=== PATIENT | male | born 2000 | race Asian ===

== ENCOUNTER 2024-02-02 07:58 | Emergency (ER) | payer OTHER ==
[~2024-02-02] VITALS: Ht 188 cm; Wt 108.5 kg
[2024-02-02] MEDS: PANTOPRAZOLE 40MG VIAL IV ONE (09:14)
[2024-02-02] MEDS: ONDANSETRON 4MG 2ML VIAL IV ONE (09:14)
[2024-02-02 09:41] LABS: HEMATOCRIT 46.6 % (42.0-52.0); HEMOGLOBIN 15.7 g/dl (13.5-17.5); MEAN CORPUSCULAR HEMOGLOBIN 26.8 pg (27.0-33.0); MEAN CORPUSCULAR HGB CONC 33.7 g/dl (32.0-36.5); MEAN CORPUSCULAR VOLUME 79.5 fl (80.0-96.0); PLATELET COUNT, AUTOMATED 215 10^3/uL (150-450); RED BLOOD COUNT 5.86 10^6/uL (4.30-6.10); WHITE BLOOD COUNT 7.6 10^3/uL (4.0-10.0)
[2024-02-02 09:54] LABS: INR 1.07; PARTIAL THROMBOPLASTIN TIME 22.9 SECONDS (24.8-34.2); PROTHROMBIN TIME 13.6 SECONDS (12.5-14.5)
[2024-02-02 10:01] LABS: LIPASE 69 U/L (12-53)
[2024-02-02 10:03] LABS: ALBUMIN 4.4 G/DL (3.2-5.2); ALKALINE PHOSPHATASE 52 U/L (46-116); ALT/SGPT 39 U/L (7.0-40); AST/SGOT 55 U/L (<34); BILIRUBIN,DIRECT 0.3 MG/DL (<0.4); BILIRUBIN,TOTAL 1.2 MG/DL (0.3-1.2); BLOOD UREA NITROGEN 18 MG/DL (9-23); CALCIUM LEVEL 9.9 MG/DL (8.5-10.1); CARBON DIOXIDE LEVEL 27 MMOL/L (20-31); CHLORIDE LEVEL 105 MMOL/L (98-107); CREATININE FOR GFR 0.99 MG/DL (0.70-1.30); GLOMERULAR FILTRATION RATE > 60.0 (>60); GLUCOSE, FASTING 83 MG/DL (60-100); POTASSIUM SERUM 4.6 MMOL/L (3.5-5.1); SODIUM LEVEL 137 MMOL/L (136-145)
[2024-02-02 10:59] VITALS: BP 136/74; TEMP 97; O2SAT 99
[2024-02-02] MEDS ORDERED: PANT40TA29 PO (10:59)
[2024-02-02] MEDS ORDERED: SUCR1SS PO (10:59)
== END 2024-02-02 11:18 | disposition home or self-care (01) ==
LOC: M ED 07:58
DX: K29.21 Alcoholic gastritis with bleeding (principal); F17.210 Nicotine dependence, cigarettes, uncomplicated; F10.10 Alcohol abuse, uncomplicated
CPT/HCPCS: 80048; 80076; 83690; 85027; 85610; 85730; 86850; 86900; 86901; 96374; 99284; J2405; J2470

== ENCOUNTER 2024-03-04 05:50 | Emergency (ER) | payer OTHER ==
[~2024-03-04] VITALS: Ht 188 cm; Wt 107.9 kg
[~2024-03-04 05:50] MED LIST: PANT40TA29 PO; SUCR1SS PO
[2024-03-04 07:03] LABS: VENOUS BASE EXCESS 2.2 (-2.0-2.0); VENOUS HCO3 30.1 MMOL/L (23.0-27.0); VENOUS O2 SATURATION 57.3 % (60.0-80.0); VENOUS PARTIAL PRESSURE CO2 60.4 mmHg (38.0-50.0); VENOUS PARTIAL PRESSURE O2 31.2 mmHg (30.0-50.0); VENOUS PH 7.316 UNITS (7.330-7.430); VENOUS STANDARD HCO3 25.4 MMOL/L
[2024-03-04 07:13] LABS: BASO % 0.5 % (0.0-1.0); EOS # 0.3 10^3/uL (0.0-0.5); EOS % 5.2 % (0.0-3.0); HEMATOCRIT 43.5 % (42.0-52.0); HEMOGLOBIN 14.3 g/dl (13.5-17.5); LYMPH # 1.8 10^3/uL (1.5-5.0); LYMPH % 30.5 % (24.0-44.0); MEAN CORPUSCULAR HEMOGLOBIN 27.4 pg (27.0-33.0); MEAN CORPUSCULAR HGB CONC 32.9 g/dl (32.0-36.5); MEAN CORPUSCULAR VOLUME 83.5 fl (80.0-96.0); MONO # 0.5 10^3/uL (0.0-0.8); MONO % 8.6 % (2.0-8.0); NEUTROPHILS # 3.3 10^3/uL (1.5-8.5); NEUTROPHILS % 54.9 % (36.0-66.0); PLATELET COUNT, AUTOMATED 226 10^3/uL (150-450); RED BLOOD COUNT 5.21 10^6/uL (4.30-6.10)
[2024-03-04 07:33] LABS: INR 0.96; PARTIAL THROMBOPLASTIN TIME 24.5 SECONDS (24.8-34.2)
[2024-03-04 07:40] LABS: ETHYL ALCOHOL (ETHANOL) < 0.003 % (0.000-0.010); LIPASE 77 U/L (12-53)
[2024-03-04 07:42] LABS: ALBUMIN 3.8 G/DL (3.2-5.2); ALKALINE PHOSPHATASE 60 U/L (40-129); ALT/SGPT 22 U/L (7.0-40); AST/SGOT 17 U/L (<34); BILIRUBIN,TOTAL 0.9 MG/DL (0.3-1.2); BLOOD UREA NITROGEN 16 MG/DL (9-23); CALCIUM LEVEL 9.4 MG/DL (8.5-10.1); CARBON DIOXIDE LEVEL 30 MMOL/L (20-31); CHLORIDE LEVEL 102 MMOL/L (98-107); CREATININE FOR GFR 1.07 MG/DL (0.70-1.30); GLOMERULAR FILTRATION RATE > 60.0 (>60); GLUCOSE, FASTING 93 MG/DL (60-100); POTASSIUM SERUM 4.1 MMOL/L (3.5-5.1); SODIUM LEVEL 141 MMOL/L (136-145); TOTAL PROTEIN 7.2 G/DL (5.7-8.2)
[2024-03-04] MEDS ORDERED: PANT40TA29 PO (08:12)
[2024-03-04] MEDS: PANTOPRAZOLE 40MG VIAL IV ONE (08:32)
[2024-03-04 08:35] VITALS: BP 135/73; TEMP 96.7; O2SAT 100
== END 2024-03-04 08:40 | disposition home or self-care (01) ==
LOC: M ED 05:50
DX: K92.0 Hematemesis (principal); F10.10 Alcohol abuse, uncomplicated; Z79.899 Other long term (current) drug therapy
CPT/HCPCS: 71045; 80053; 82077; 82803; 83690; 85025; 85610; 85730; 86850; 86900; 86901; 96374; 99284; J2470

== ENCOUNTER 2024-03-04 21:14 | Emergency (ER) | payer OTHER ==
[~2024-03-04] VITALS: Ht 188 cm; Wt 125.0 kg
[2024-03-04 21:43] LABS: BASO % 0.3 % (0.0-1.0); EOS # 0.1 10^3/uL (0.0-0.5); EOS % 0.9 % (0.0-3.0); HEMATOCRIT 42.1 % (42.0-52.0); HEMOGLOBIN 14.3 g/dl (13.5-17.5); LYMPH % 14.3 % (24.0-44.0); MEAN CORPUSCULAR HEMOGLOBIN 27.5 pg (27.0-33.0); MONO # 0.4 10^3/uL (0.0-0.8); MONO % 5.3 % (2.0-8.0); NEUTROPHILS # 5.5 10^3/uL (1.5-8.5); NEUTROPHILS % 78.8 % (36.0-66.0); PLATELET COUNT, AUTOMATED 231 10^3/uL (150-450)
[2024-03-04 22:02] LABS: ETHYL ALCOHOL (ETHANOL) 0.262 % (0.000-0.010)
[2024-03-04 22:04] LABS: CPK CREATINE PHOSPHOKINASE 303 U/L (46-171); SALICYLATE LEVEL < 3.0 MG/DL (<30)
[2024-03-04 22:09] LABS: ALKALINE PHOSPHATASE 57 U/L (40-129); ALT/SGPT 24 U/L (7.0-40); AST/SGOT 24 U/L (<34); BILIRUBIN,DIRECT 0.3 MG/DL (<0.4); BILIRUBIN,TOTAL 0.8 MG/DL (0.3-1.2); BLOOD UREA NITROGEN 9 MG/DL (9-23); CALCIUM LEVEL 9.3 MG/DL (8.5-10.1); CARBON DIOXIDE LEVEL 21 MMOL/L (20-31); CHLORIDE LEVEL 102 MMOL/L (98-107); CREATININE FOR GFR 1.08 MG/DL (0.70-1.30); GLOMERULAR FILTRATION RATE > 60.0 (>60); GLUCOSE, FASTING 97 MG/DL (60-100); POTASSIUM SERUM 3.5 MMOL/L (3.5-5.1); SODIUM LEVEL 139 MMOL/L (136-145); THYROID STIMULATING HORMONE 0.928 uIU/ML (0.55-4.78); TOTAL PROTEIN 7.6 G/DL (5.7-8.2)
[2024-03-04] MEDS ORDERED: ISOVUE-370 76% 100ML VIAL As Ordered ONE (22:28)
[2024-03-04] MEDS: MULTIVITAMIN -ADULT INJECTION 10 ML, THIAMINE INJection 100 MG, FOLIC ACID 1 MG in NS 1... IV ONE (23:51)
[2024-03-04] MEDS: BOOSTRIX VACCINE (TETANUS/DIPHTH/ACEL. PERTUSSIS) 0.5ML SYR IM.IMMUN ONE (23:54)
[2024-03-05] MEDS ORDERED: ONDANSETRON 4MG 2ML VIAL As Ordered ONE (00:48)
[2024-03-05] MEDS: ONDANSETRON 4MG 2ML VIAL IV ONE (00:50)
[2024-03-05] MEDS: NICOTINE 21MG/24HR 1 EA TRANSDERMAL TD ONE (02:40)
[2024-03-05 08:18] LABS: BARBITURATES URINE NEGATIVE (NEGATIVE)
[2024-03-05 08:19] LABS: CANNABINOIDS URINE NEGATIVE (NEGATIVE); METHADONE URINE NEGATIVE (NEGATIVE); OPIATES URINE NEGATIVE (NEGATIVE); PHENCYCLIDINE URINE NEGATIVE (NEGATIVE)
[2024-03-05 08:23] LABS: AMPHETAMINES LEVEL URINE POSITIVE (NEGATIVE); BENZODIAZEPINES URINE POSITIVE (NEGATIVE); COCAINE METABOLITE URINE POSITIVE (NEGATIVE)
[2024-03-05 09:27] VITALS: BP 158/83; TEMP 98.4; O2SAT 99
== END 2024-03-05 09:57 | disposition home or self-care (01) ==
LOC: M ED 21:14 → EDBD 21:14 → M ED 03-05 09:57
DX: F10.188 Alcohol abuse with other alcohol-induced disorder (principal); S01.01XA Laceration without foreign body of scalp, initial encounter; Y92.9 Unspecified place or not applicable; Y93.9 Activity, unspecified; Y99.9 Unspecified external cause status; R00.0 Tachycardia, unspecified; I45.81 Long QT syndrome; K21.9 Gastro-esophageal reflux disease without esophagitis; F32.A Depression, unspecified; Z23 Encounter for immunization
CPT/HCPCS: 12001; 70450; 71045; 72125; 74177; 80048; 80053; 80076; 80143; 80307; 82077; 82550; 82803; 83605; 83690; 84443; 85025; 85610; 85730; 86850; 86900; 86901; 90471; 90715; 93005; 93041; 94760; 96365; 96366; 96374; 96375; 99284; 99285; J2405; J2470; J3411; Q9967

== ENCOUNTER 2024-03-27 06:24 | Emergency (ER) | payer OTHER ==
[~2024-03-27] VITALS: Ht 190.5 cm; Wt 104.3 kg
[2024-03-27 07:36] LABS: BASO % 0.6 % (0.0-1.0); EOS # 0.2 10^3/uL (0.0-0.5); EOS % 4.1 % (0.0-3.0); HEMATOCRIT 43.1 % (42.0-52.0); HEMOGLOBIN 14.3 g/dl (13.5-17.5); LYMPH # 2.2 10^3/uL (1.5-5.0); LYMPH % 42.8 % (24.0-44.0); MEAN CORPUSCULAR HEMOGLOBIN 28.1 pg (27.0-33.0); MEAN CORPUSCULAR HGB CONC 33.2 g/dl (32.0-36.5); MEAN CORPUSCULAR VOLUME 84.7 fl (80.0-96.0); MONO # 0.5 10^3/uL (0.0-0.8); MONO % 10.7 % (2.0-8.0); NEUTROPHILS # 2.1 10^3/uL (1.5-8.5); NEUTROPHILS % 41.6 % (36.0-66.0); PLATELET COUNT, AUTOMATED 235 10^3/uL (150-450); RED BLOOD COUNT 5.09 10^6/uL (4.30-6.10); WHITE BLOOD COUNT 5.1 10^3/uL (4.0-10.0)
[2024-03-27 08:03] LABS: LIPASE 93 U/L (12-53)
[2024-03-27 08:06] LABS: ALBUMIN 3.8 G/DL (3.2-5.2); ALKALINE PHOSPHATASE 49 U/L (40-129); ALT/SGPT 27 U/L (7.0-40); AST/SGOT 13 U/L (<34); BILIRUBIN,DIRECT 0.4 MG/DL (<0.4); BILIRUBIN,TOTAL 1.4 MG/DL (0.3-1.2); BLOOD UREA NITROGEN 21 MG/DL (9-23); CALCIUM LEVEL 9.7 MG/DL (8.5-10.1); CARBON DIOXIDE LEVEL 26 MMOL/L (20-31); CHLORIDE LEVEL 107 MMOL/L (98-107); CREATININE FOR GFR 1.05 MG/DL (0.70-1.30); GLOMERULAR FILTRATION RATE > 60.0 (>60); GLUCOSE, FASTING 87 MG/DL (60-100); POTASSIUM SERUM 3.9 MMOL/L (3.5-5.1); SODIUM LEVEL 139 MMOL/L (136-145); TOTAL PROTEIN 7.1 G/DL (5.7-8.2)
[2024-03-27 08:51] VITALS: BP 129/58; TEMP 99.3; O2SAT 99
== END 2024-03-27 14:10 | disposition left against medical advice (07) ==
LOC: M ED 06:24
DX: Z53.21 Procedure and treatment not carried out due to patient leaving prior to being seen by health care provider (principal)

== ENCOUNTER 2024-05-01 19:21 | Inpatient (IN) | payer OTHER ==
[~2024-05-01] VITALS: Ht 188 cm; Wt 105.9 kg
[2024-05-01] MEDS: HALOPERIDOL LACTATE 5MG/ML VIAL IM ONE (19:44)
[2024-05-01] MEDS: diphenhydrAMINE 50MG/ML VIAL IM ONE (19:44)
[2024-05-01] MEDS: LORazepam 2 MG/ML 1ML VIAL IM ONE (19:44)
[2024-05-01 19:52] LABS: BASO % 0.4 % (0.0-1.0); EOS # 0.2 10^3/uL (0.0-0.5); HEMATOCRIT 45.4 % (42.0-52.0); HEMOGLOBIN 15.1 g/dl (13.5-17.5); LYMPH # 2.8 10^3/uL (1.5-5.0); LYMPH % 34.8 % (24.0-44.0); MEAN CORPUSCULAR HEMOGLOBIN 28.4 pg (27.0-33.0); MEAN CORPUSCULAR HGB CONC 33.3 g/dl (32.0-36.5); MEAN CORPUSCULAR VOLUME 85.5 fl (80.0-96.0); MONO # 0.6 10^3/uL (0.0-0.8); MONO % 7.6 % (2.0-8.0); NEUTROPHILS # 4.4 10^3/uL (1.5-8.5); NEUTROPHILS % 54.8 % (36.0-66.0); PLATELET COUNT, AUTOMATED 266 10^3/uL (150-450); RED BLOOD COUNT 5.31 10^6/uL (4.30-6.10)
[2024-05-01 20:11] LABS: AMPHETAMINES LEVEL URINE NEGATIVE (NEGATIVE); CANNABINOIDS URINE NEGATIVE (NEGATIVE); METHADONE URINE NEGATIVE (NEGATIVE); OPIATES URINE NEGATIVE (NEGATIVE); PHENCYCLIDINE URINE NEGATIVE (NEGATIVE)
[2024-05-01 20:12] LABS: BARBITURATES URINE NEGATIVE (NEGATIVE); BENZODIAZEPINES URINE NEGATIVE (NEGATIVE); COCAINE METABOLITE URINE NEGATIVE (NEGATIVE)
[2024-05-01 20:15] LABS: CPK CREATINE PHOSPHOKINASE 515 U/L (46-171); SALICYLATE LEVEL < 3.0 MG/DL (<30)
[2024-05-01 20:16] LABS: ALBUMIN 4.4 G/DL (3.2-5.2); ALKALINE PHOSPHATASE 91 U/L (40-129); ALT/SGPT 23 U/L (7.0-40); AST/SGOT 35 U/L (<34); BILIRUBIN,DIRECT 0.1 MG/DL (<0.4); BILIRUBIN,TOTAL 0.4 MG/DL (0.3-1.2); BLOOD UREA NITROGEN 17 MG/DL (9-23); CALCIUM LEVEL 8.8 MG/DL (8.5-10.1); CARBON DIOXIDE LEVEL 21 MMOL/L (20-31); CHLORIDE LEVEL 108 MMOL/L (98-107); CREATININE FOR GFR 1.04 MG/DL (0.70-1.30); GLOMERULAR FILTRATION RATE > 60.0 (>60); GLUCOSE, FASTING 102 MG/DL (60-100); POTASSIUM SERUM 4.2 MMOL/L (3.5-5.1); SODIUM LEVEL 143 MMOL/L (136-145)
[2024-05-01 20:42] LABS: ETHYL ALCOHOL (ETHANOL) 0.404 % (0.000-0.010)
[2024-05-01] MEDS ORDERED: LORazepam 2 MG TAB PO PRN (21:10)
[2024-05-02] MEDS: THIAMINE 100 MG TAB PO SCH ×2 (04:27→22:08)
[2024-05-02] MEDS: MULTIVITAMINS/MINERALS THERAP 1 TAB PO SCH (09:12)
[2024-05-02] MEDS: FOLIC ACID 1MG TAB PO SCH (09:12)
[2024-05-02] MEDS ORDERED: HOME MED LIST COMPLETE! XX SCH (10:35)
[2024-05-02] MEDS ORDERED: MOM 30ML SUSPENSION UDC PO PRN (11:55)
[2024-05-02] MEDS ORDERED: MAALOX 30 ML SUSP *UDC PO PRN (11:55)
[2024-05-02] MEDS ORDERED: IBUPROFEN 400MG TAB PO PRN (11:55)
[2024-05-02] MEDS ORDERED: ACETAMINOPHEN 325 MG TAB PO PRN (11:55)
[2024-05-02 12:56] VITALS: BP 137/82; TEMP 98.4; O2SAT 99
[2024-05-02] MEDS ORDERED: LORazepam 2 MG TAB PO PRN (18:20)
[2024-05-02 18:27] VITALS: BP 137/82
[2024-05-03 06:30] VITALS: BP 120/90; TEMP 97.2; O2SAT 100
[2024-05-03 06:31] VITALS: BP 120/90
[2024-05-03] MEDS: FOLIC ACID 1MG TAB PO SCH (09:00)
[2024-05-03] MEDS: MULTIVITAMINS/MINERALS THERAP 1 TAB PO SCH (09:00)
[2024-05-03 14:31] VITALS: BP 131/70; TEMP 98.9; O2SAT 100
[2024-05-03 14:32] VITALS: BP 131/70
[2024-05-03] MEDS: traZODone 50 MG TAB PO PRN (19:59)
[2024-05-04 06:16] VITALS: BP 127/79; TEMP 97.8; O2SAT 98
[2024-05-04 06:21] VITALS: BP 127/79
[2024-05-04 08:22] VITALS: BP 132/90; TEMP 97.3; O2SAT 93
[2024-05-04 15:54] VITALS: BP 129/63; TEMP 98; O2SAT 100
[2024-05-04] MEDS: NICOTINE 21MG/24HR 1 EA TRANSDERMAL TD PRN (18:29)
[2024-05-04] MEDS: diphenhydrAMINE 25MG CAP PO PRN (20:18)
[2024-05-05 06:12] VITALS: BP 138/62; TEMP 98.6; O2SAT 100
[2024-05-05 16:01] VITALS: BP 133/80; TEMP 98.6; O2SAT 100
[2024-05-05] MEDS: LORazepam 1 MG TAB PO ONE (21:41)
[2024-05-06 06:23] VITALS: BP 131/74; TEMP 97.8; O2SAT 99
== END 2024-05-06 13:59 | disposition home or self-care (01) | DRG 882 ==
LOC: M ED 19:21 → M ED INP 05-02 11:52 → M PSY 05-02 12:59
PROVIDERS: ADMIT Psychiatry & Neurology Psychiatry; ATTEND Psychiatry & Neurology Psychiatry
DX: F43.10 Post-traumatic stress disorder, unspecified (principal); R45.851 Suicidal ideations; F10.20 Alcohol dependence, uncomplicated; F17.210 Nicotine dependence, cigarettes, uncomplicated